=== PATIENT | female | born 1995 | race African-American/Black ===

== ENCOUNTER 2022-10-05 13:16 | Emergency (ER) | payer SELFPAY ==
[~2022-10-05] VITALS: Ht 170.2 cm; Wt 56.8 kg
[2022-10-05 13:52] VITALS: BP 120/81; PULSE 94; RESP 18; TEMP 98.7; O2SAT 100
[2022-10-05 14:24] LABS: Basophils # (auto) 0.1 10 ^3/uL (0-0.2); Eosinophils # (auto) 0.1 10 ^3/uL (0-0.8); Hematocrit 38.2 % (36.0-46.0); Hemoglobin 12.3 g/dL (12.2-16.2); Mean Corpuscular Hemoglobin 22.3 pg (28.0-32.0); Mean Corpuscular Hgb Conc. 32.2 g/dL (32.0-36.0)
[2022-10-05 14:26] LABS: Basophils % (auto) 0.5 % (0.0-2.0); Eosinophils % (auto) 0.5 % (0.0-7.0); Lymphocytes # (auto) 2.3 10 ^3/uL (0.4-5.4); Lymphocytes % (auto) 21.1 % (10.0-50.0); Mean Corpuscular Volume 69.3 fL (80.0-100.0); Monocytes # (auto) 0.6 10 ^3/uL (0-1.3); Monocytes % (auto) 5.5 % (0.0-12.0); Neutrophils # (auto) 7.8 10 ^3/uL (1.6-8.6); Neutrophils % (auto) 72.4 % (37.0-80.0); White Blood Cell 10.8 10^3/uL (4.4-10.8)
[2022-10-05 15:05] LABS: Urine Bacteria FEW /hpf (None Seen); Urine Blood Negative /uL (Negative); Urine Clarity Clear (Clear); Urine Color Colorless (Yellow); Urine Protein, UAD Negative (Negative); Urine Specific Gravity 1.003 (1.001-1.035); Urine Urobilinogen Normal (Negative); Urine WBC 1 /hpf (0 - 5); Urine pH 6.5 (5.0-8.0)
[2022-10-05 15:05] LABS: BUN/Creatinine Ratio 9.3 (10.0-20.0); Calcium 8.8 mg/dL (8.5-10.1); Potassium 3.5 mmol/L (3.5-5.1)
[2022-10-05 15:25] LABS: Red Cell Distribution Width 21.5 % (11.8-14.3)
[2022-10-05] MEDS ORDERED: IBUP-1454 PO (15:30)
[2022-10-05 16:46] LABS: Anisocytosis Moderate; Hypochromia Moderate; Platelet Estimate Adequate
== END 2022-10-05 15:41 | disposition home or self-care (01) ==
LOC: ER 13:16
DX: N83.201 Unspecified ovarian cyst, right side (principal); R10.2 Pelvic and perineal pain; Z79.1 Long term (current) use of non-steroidal anti-inflammatories (NSAID)
CPT/HCPCS: 36415; 76856; 80048; 81001; 81025; 85025